=== PATIENT | female | born 1960 | race Caucasian/White ===

== ENCOUNTER → 2017-05-16 | Outpatient (CLI) | payer OTHER ==
[~2017-05-16] MED LIST: ASPI-496 PO; GABA300C10 PO; L-THYROXINE PO; MELO15TA24 PO; METF500T4 PO; THYR90TA PO; VALS80TA3 PO; VENLAFAXINE PO
[2017-05-16 09:15] LABS: HEMATOCRIT 40.2 % (34.6-47.8); HEMOGLOBIN 13.4 g/dL (11.7-16.4); WHITE BLOOD COUNT 8.4 x10^3/uL (3.4-10)
[2017-05-16 09:29] LABS: BLOOD UREA NITROGEN 13 mg/dL (7-18); TOTAL IRON BINDING CAPACITY 313 mcg/dL (250-450)
[2017-05-16 09:55] LABS: ASPARTATE AMINO TRANSFERASE 16 U/L (15-37); FERRITIN 104.1 ng/mL (8-252); TRANSFERRIN 243 mg/dL (200-360)
== END | disposition home or self-care (01) ==
LOC: STAR 08:08
PROVIDERS: ATTEND Surgery
DX: J98.4 Other disorders of lung (principal); Z98.890 Other specified postprocedural states; C50.911 Malignant neoplasm of unspecified site of right female breast; Z85.3 Personal history of malignant neoplasm of breast
CPT/HCPCS: 36415; 71020; 80053; 82306; 82607; 82728; 82746; 83540; 83550; 83970; 84134; 84425; 84466; 85025; 93005

== ENCOUNTER 2017-05-21 12:09 | Inpatient (IN) | payer OTHER ==
[2017-05-16 09:01] VITALS: BP 192/96
[~2017-05-21] VITALS: Ht 157.5 cm; Wt 130.0 kg
[2017-05-21] MEDS ORDERED: LACTATED RINGERS 1,000 ML IV SCH (12:39)
[2017-05-21 13:08] LABS: CHOL/HDL RATIO 2.7; LDL/HDL RATIO 1.4 (0.5-3.0)
[2017-05-21] MEDS ORDERED: FENTANYL PF 250 MCG/5ML ONE ×2 (13:36→15:09)
[2017-05-21] MEDS ORDERED: MIDAZOLAM 1 MG/ML, 2ML ONE (13:36)
[2017-05-21] MEDS ORDERED: ONDANSETRON 2MG/ML, 2ML ONE (13:37)
[2017-05-21] MEDS ORDERED: ROCURONIUM 10 MG/ML,10ML ONE (13:37)
[2017-05-21] MEDS ORDERED: PROPOFOL 10 MG/ML, 20ML ONE (13:37)
[2017-05-21] MEDS ORDERED: CEFAZOLIN 1,000 MG ONE ×2 (13:38)
[2017-05-21] MEDS ORDERED: DEXAMETHASONE 4 MG/ML, 1ML ONE ×2 (13:38)
[2017-05-21] MEDS ORDERED: SUCCINYLCHOLINE 20 MG/ML, 10ML ONE ×2 (13:38)
[2017-05-21] MEDS ORDERED: EPINEPHRINE 1 MG/ML, 1ML ONE (13:43)
[2017-05-21] MEDS ORDERED: BUPIVACAINE/PF 0.5% ONE (13:43)
[2017-05-21] MEDS ORDERED: KETAMINE 10 MG/ML, 20ML ONE (14:59)
[2017-05-21] MEDS ORDERED: FENTANYL PF 100 MCG/2ML ONE ×2 (16:15→17:15)
[2017-05-21] MEDS ORDERED: GLYCOPYRROLATE 0.2MG/1ML, 5ML ONE (16:35)
[2017-05-21] MEDS ORDERED: NEOSTIGMINE 1 MG/ML, 10ML ONE (16:35)
[2017-05-21] MEDS: FENTANYL PF 100 MCG/2ML IV PRN ×2 (17:20→17:40)
[2017-05-21] MEDS ORDERED: LABETALOL 5MG/ML, 20ML IV PRN (17:30)
[2017-05-21] MEDS ORDERED: MEPERIDINE/PF 25MG/0.5ML IVPush PRN (17:30)
[2017-05-21] MEDS ORDERED: ALBUTEROL SULFATE 2.5 MG/3 ML NPPB PRN (17:30)
[2017-05-21] MEDS ORDERED: PROMETHAZINE 25 MG/ML, 1ML IV PRN (17:30)
[2017-05-21] MEDS ORDERED: HYDROmorphone 1 MG/ML, 1ML IV PRN (17:30)
[2017-05-21] MEDS ORDERED: ACETAMINOPHEN 325 MG TABLET PO PRN (17:30)
[2017-05-21] MEDS ORDERED: OXYcodone 5 MG/5 ML ORAL.SOL UDC PO PRN (17:30)
[2017-05-21] MEDS ORDERED: hydrALAzine 20 MG/ML, 1ML IV PRN (17:30)
[2017-05-21] MEDS ORDERED: MIDAZOLAM 1 MG/ML, 2ML IV PRN (17:30)
[2017-05-21] MEDS ORDERED: ONDANSETRON 2MG/ML, 2ML IVPush PRN (17:30)
[2017-05-21] MEDS ORDERED: MEPERIDINE/PF 50 MG/ML ONE (18:01)
[2017-05-21] MEDS ORDERED: DIPHENHYDRAMINE 25 MG CAPSULE PO PRN (19:30)
[2017-05-21] MEDS ORDERED: LACTATED RINGERS 500 ML IVBOLUS PRN (19:30)
[2017-05-21] MEDS ORDERED: ENALAPRILAT 1.25 MG/ML, 2ML IV PRN (19:30)
[2017-05-21] MEDS ORDERED: ONDANSETRON 2MG/ML, 2ML IV PRN (19:30)
[2017-05-21] MEDS ORDERED: HYDROcodone/APAP 7.5-325MG/15ML UDC PO PRN (19:30)
[2017-05-21] MEDS ORDERED: PHENOL THROAT SPRAY BOTTLE MM PRN (19:30)
[2017-05-21] MEDS ORDERED: LORazepam 2 MG/ML, 1ML IV PRN (19:30)
[2017-05-21] MEDS: POTASSIUM CHLORIDE 20 MEQ in LACTATED RINGERS 1,000 ML IV SCH (19:48)
[2017-05-21] MEDS ORDERED: ENOXAPARIN 40 MG/0.4 ML SQ SCH (20:00)
[2017-05-21 20:02] VITALS: BP 134/75
[2017-05-21] MEDS: DIPHENHYDRAMINE 50 MG/ML, 1ML IV PRN (22:38)
[2017-05-22 00:08] VITALS: BP 112/63
[2017-05-22 02:44] VITALS: BP 108/67
[2017-05-22] MEDS: POTASSIUM CHLORIDE 20 MEQ in LACTATED RINGERS 1,000 ML IV SCH ×2 (04:43→12:50)
[2017-05-22] MEDS: DIPHENHYDRAMINE 50 MG/ML, 1ML IV PRN (04:44)
[2017-05-22 05:55] LABS: BASOPHILS # (AUTO) 0.01 x10^3/uL (0-0.1); BASOPHILS % (AUTO) 0 % (0-1); EOSINOPHILS % (AUTO) 0 % (1-7); LYMPHOCYTES # (AUTO) 0.76 x10^3/uL (1-3.4); LYMPHOCYTES % (AUTO) 8 % (22-44); MD NO; MEAN CORPUSCULAR HEMOGLOBIN 28.5 pg (27.0-34.8); MEAN CORPUSCULAR HGB CONC 33.3 g/dL (32.4-35.8); MEAN CORPUSCULAR VOLUME 85.7 fL (80-100); MEAN PLATELET VOLUME 8.1 fL (7.4-10.4); MONOCYTES # (AUTO) 0.39 x10^3/uL (0.2-0.8); MONOCYTES % (AUTO) 4 % (2-9); NEUTROPHILS # (AUTO) 7.94 x10^3/uL (1.8-6.8); NEUTROPHILS % (AUTO) 87 % (42-75); PLATELET COUNT 198 x10^3/uL (130-400); RED BLOOD COUNT 4.17 x10^6/uL (3.82-5.3); RED CELL DISTRIBUTION WIDTH 16.7 % (9.6-15.2)
[2017-05-22 06:04] LABS: ALBUMIN 2.9 g/dL (3.4-5.0); ANION GAP 5 mmol/L (5-15); CALCIUM 8.4 mg/dL (8.5-10.1); CHLORIDE 109 mmol/L (98-107)
[2017-05-22 06:05] LABS: CREATININE 0.78 mg/dL (0.55-1.02)
[2017-05-22 07:25] VITALS: BP 123/65
[2017-05-22 13:35] VITALS: BP 135/66
== END 2017-05-22 16:45 | disposition home or self-care (01) | DRG 619 ==
LOC: ORIP 12:09 → 4NOR 18:34 → DCLOUNGE 05-22 16:25
PROVIDERS: ADMIT Surgery; ATTEND Surgery
PROC: 0DB64Z3 Excision of Stomach, Percutaneous Endoscopic Approach, Vertical (ICD-10-PCS; principal; 2017-05-21 14:00)
DX: E66.01 Morbid (severe) obesity due to excess calories (principal); E43 Unspecified severe protein-calorie malnutrition; E03.9 Hypothyroidism, unspecified; Z68.43 Body mass index [BMI] 50.0-59.9, adult; E11.9 Type 2 diabetes mellitus without complications; G43.909 Migraine, unspecified, not intractable, without status migrainosus; G47.30 Sleep apnea, unspecified; G89.29 Other chronic pain; M85.80 Other specified disorders of bone density and structure, unspecified site; Z90.49 Acquired absence of other specified parts of digestive tract; Z90.710 Acquired absence of both cervix and uterus; Z90.89 Acquired absence of other organs; Z90.11 Acquired absence of right breast and nipple; Z88.8 Allergy status to other drugs, medicaments and biological substances; Z88.2 Allergy status to sulfonamides; Z82.61 Family history of arthritis; Z80.3 Family history of malignant neoplasm of breast; Z82.3 Family history of stroke; Z83.3 Family history of diabetes mellitus; Z82.49 Family history of ischemic heart disease and other diseases of the circulatory system; Z80.8 Family history of malignant neoplasm of other organs or systems; Z80.52 Family history of malignant neoplasm of bladder; Z72.89 Other problems related to lifestyle; Z72.0 Tobacco use
CPT/HCPCS: 36415; 80048; 80061; 82040; 82962; 85025; 88305; C1729; J0171; J0690; J1100; J1650; J2175; J2250; J2270; J2405; J2704; J2710; J3010; J3480; J3490; C1760; J0330; J1200; J7120

== ENCOUNTER → 2018-03-11 | Outpatient (CLI) | payer OTHER ==
[~2018-03-11] MED LIST changes: +METF500T17 PO; -METF500T4 PO
== END | disposition home or self-care (01) ==
LOC: CFH 10:06
PROVIDERS: ATTEND Nurse Practitioner Family
DX: Z12.31 Encounter for screening mammogram for malignant neoplasm of breast (principal); Z85.3 Personal history of malignant neoplasm of breast
CPT/HCPCS: 77063; 77067

== ENCOUNTER → 2020-07-08 | Outpatient (CLI) | payer OTHER | END | disposition home or self-care (01) | LOC: CFH 13:23 | PROVIDERS: ATTEND Family Medicine | DX: N63.10 Unspecified lump in the right breast, unspecified quadrant (principal); Z85.3 Personal history of malignant neoplasm of breast | CPT/HCPCS: 76642; 77061; 77065; G0279 ==